=== PATIENT | male | born 1995 | race African-American/Black ===

== ENCOUNTER 2024-02-06 01:36 | Emergency (ER) | payer MEDICAID ==
[~2024-02-06] VITALS: Ht 182.9 cm; Wt 62.3 kg
[2024-02-06 01:46] VITALS: O2SAT 99
[2024-02-06 01:48] VITALS: BP 165/90; PULSE 74; RESP 18; TEMP 99; O2SAT 99
[2024-02-06] MEDS: IBUPROFEN 600MG TABLET PO ONE (02:15)
[2024-02-06] MEDS ORDERED: IBUP-2029 MT (02:50)
== END 2024-02-06 03:33 | disposition home or self-care (01) ==
LOC: ER 01:36
DX: S60.221A Contusion of right hand, initial encounter (principal); Z98.890 Other specified postprocedural states; X58.XXXA Exposure to other specified factors, initial encounter; Y93.89 Activity, other specified; Y92.89 Other specified places as the place of occurrence of the external cause; Y99.8 Other external cause status
CPT/HCPCS: 29125; 73130; 99283

== ENCOUNTER 2024-02-13 22:29 | Emergency (ER) | payer MEDICAID ==
[~2024-02-13] VITALS: Ht 182.9 cm; Wt 61.2 kg
[~2024-02-13 22:29] MED LIST: IBUP-2029 MT
[2024-02-13 22:30] VITALS: BP 128/79; RESP 18; TEMP 98.7; O2SAT 97
[2024-02-13 22:36] VITALS: PULSE 87; O2SAT 98
== END 2024-02-13 23:46 | disposition home or self-care (01) ==
LOC: ER 22:29
DX: Z00.00 Encounter for general adult medical examination without abnormal findings (principal)
CPT/HCPCS: 99281

== ENCOUNTER 2024-02-15 03:34 | Emergency (ER) | payer MEDICAID ==
[~2024-02-15] VITALS: Ht 182.9 cm; Wt 62.0 kg
[2024-02-15 03:46] VITALS: O2SAT 97
[2024-02-15 03:50] VITALS: BP 105/71; PULSE 67; RESP 16; TEMP 97.8; O2SAT 97
== END 2024-02-15 07:30 | disposition home or self-care (01) ==
LOC: ER 03:34
DX: Z00.00 Encounter for general adult medical examination without abnormal findings (principal)
CPT/HCPCS: 99281